=== PATIENT | female | born 1960 | race Caucasian/White ===

== ENCOUNTER → 2016-11-05 | Outpatient (CLI) | payer BC | LOC: US 07:32 | DX: R10.11 Right upper quadrant pain (principal) | CPT/HCPCS: 76705 ==

== ENCOUNTER 2016-12-02 14:06 | Emergency (ER) | payer BC ==
[2016-12-02 14:51] LABS: HEMOGLOBIN 12.6 gm/dl (12.3-15.3); RED BLOOD COUNT 4.25 M/UL (4.00-5.10); WHITE BLOOD COUNT 7.7 K/UL (4.5-11.0)
[2016-12-02 15:12] LABS: BUN/CREATININE RATIO 13 (0-10)
== END 2016-12-02 16:59 | disposition home or self-care (01) ==
LOC: ER1 14:06
PROVIDERS: Family Medicine
DX: R10.11 Right upper quadrant pain (principal); E03.9 Hypothyroidism, unspecified; Z79.899 Other long term (current) drug therapy
CPT/HCPCS: 36415; 80053; 81001; 83690; 85025; 96374; 96375; 99283

== ENCOUNTER → 2020-09-13 | Outpatient (CLI) | payer BC, OTHER ==
[2020-09-14 12:13] LABS: RHEUMATOID ARTHRITIS FACTOR <10.0 IU/mL (0.0-13.9)
[2020-09-14 15:13] LABS: ALDOLASE 5.1 U/L (3.3-10.3)
[2020-09-16 00:09] LABS: CCP ANTIBODIES IGG/IGA 4 units (0-19)
== END ==
LOC: LAB 10:56
PROVIDERS: Nurse Practitioner Family
DX: R53.83 Other fatigue (principal); D89.9 Disorder involving the immune mechanism, unspecified; M25.50 Pain in unspecified joint; R76.8 Other specified abnormal immunological findings in serum
CPT/HCPCS: 36415; 82085; 82550; 83520; 85652; 86140; 86200; 86431

== ENCOUNTER → 2022-03-19 | Outpatient (CLI) | payer BC | LOC: EXRD 11:29 | DX: R31.9 Hematuria, unspecified (principal) | CPT/HCPCS: 74018 ==